=== PATIENT | female | born 1990 | race Caucasian/White ===

== ENCOUNTER 2016-06-18 14:03 | Emergency (ER) | payer BC, OTHER ==
[~2016-06-18] VITALS: Ht 160 cm; Wt 122.5 kg
[2016-06-18 14:03] VITALS: BP 143/84
[2016-06-18] MEDS ORDERED: DIPHTH,PERTUSS(ACELL),TET TOX 0.5 ML DISP.SYRIN. VAX IM ONE (14:45)
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
[2016-06-19 17:10] LABS: HCV ANTIBODY <0.1 s/co ratio (0.0-0.9); HEP A IGM ABDY Negative (Negative); HEP B SURFACE ABDY Reactive (.)
== END 2016-06-18 15:30 | disposition home or self-care (01) ==
LOC: ER 14:03
DX: Z77.21 Contact with and (suspected) exposure to potentially hazardous body fluids (principal)
CPT/HCPCS: 36415; 80074; 86703; 86706; 90471; 90715; 99284-25